=== PATIENT | female | born 1955 | race Caucasian/White ===

== ENCOUNTER 2025-05-22 09:02 | Day surgery (SDC) | payer BC, OTHER ==
[2025-05-17 13:04] VITALS: BMI 37.1
[2025-05-22] MEDS ORDERED: EPINEPHrine 1:1000 P/F - 1 MG/ML AMP ONE (09:41)
[2025-05-22] MEDS ORDERED: LIDOCAINE 1% P/F 10 MG/ML VIAL ONE (09:41)
[2025-05-22] MEDS ORDERED: BSS (NA/CA/MG/K) BALANCED SALT SOLUTION OPHTH SOLN 15 ML BOTTLE ONE (09:41)
[2025-05-22] MEDS ORDERED: NEO/POLYMYX B SULF/DEXAMETH OPHTHALMIC 5ML BOTTLE ONE (09:41)
[2025-05-22] MEDS ORDERED: TETRACAINE 0.5% OPHTH SOLN 2 ML BOTTLE ONE (09:41)
[2025-05-22] MEDS ORDERED: CARBACHOL 0.01% INTRA-OCULAR 1.5 ML VIAL ONE (09:41)
[2025-05-22] MEDS: CYCLOPENTOLATE 2% OPHTH SOLN 2 ML BOTTLE ONE (10:05)
[2025-05-22] MEDS: TROPICAMIDE 1% 3 ML EYE DROPS ONE (10:05)
[2025-05-22] MEDS: PHENYLEPHRINE 2.5% OPTHALMIC DROP 2ML BOTTLE ONE (10:05)
[2025-05-22] MEDS: CIPROFLOXACIN 0.3% EYE DROPS 5 ML BOTTLE ONE (10:05)
[2025-05-22] MEDS ORDERED: EPI-SHUGARCAINE (EPINEPHRINE 0.025% & LIDOCAINE-PF 0.75%) 4ML ONE (11:45)
[2025-05-22] MEDS ORDERED: MIDAZOLAM HCL 2 MG/2 ML SINGLE DOSE VIAL ONE (12:03)
[2025-05-22] MEDS ORDERED: TOBRA 0.3%/DEXAMETH 0.1% OPHTHALMIC SUSP 2.5 ML BTL ONE (12:09)
[2025-05-22] MEDS ORDERED: MOXIFLOXACIN HCL 0.5% OPHTHALMIC 3 ML BOTTLE ONE (12:31)
[2025-05-22 13:39] VITALS: RESP 20; TEMP 97
[2025-05-22 13:45] VITALS: BP 132/70; PULSE 81
== END 2025-05-22 13:20 | disposition home or self-care (01) ==
LOC: FASU 09:02
PROVIDERS: ATTEND Ophthalmology
PROC: 08RJ3JZ Replacement of Right Lens with Synthetic Substitute, Percutaneous Approach (ICD-10-PCS; principal; 2025-05-22 12:12)
DX: H25.89 Other age-related cataract (principal)
CPT/HCPCS: 66984; V2632; 82962